=== PATIENT | female | born 1990 | race Caucasian/White ===

== ENCOUNTER 2017-08-11 23:08 | Emergency (ER) | payer SELFPAY ==
[~2017-08-11] VITALS: Ht 152.4 cm; Wt 79.4 kg
[~2017-08-11 23:08] MED LIST: ADVIL PO; TYLENOL PO
[2017-08-12] MEDS ORDERED: ACETAMINOPHEN/CODEINE 120-12 MG PER 5 ML LIQUID UDC PO ONE (00:45)
[2017-08-12] MEDS ORDERED: predniSONE 20 MG TABLET PO ONE (00:45)
--- NOTE | 2017-08-12 01:02 | NUR ---
Patient discharged to home in stable conditon. Written and verbal after care instructions given. Patient verbalizes understanding of instructions.
[2017-08-12] MEDS ORDERED: ACETAMINOPHEN/CODEINE 120-12 MG PER 5 ML LIQUID UDC ONE (01:03)
[2017-08-12] MEDS ORDERED: predniSONE 10 MG TABLET ONE (01:03)
[2017-08-12] MEDS ORDERED: predniSONE 50 MG TABLET ONE (01:04)
== END 2017-08-12 01:03 | disposition home or self-care (01) ==
LOC: ER 23:17
DX: J45.909 Unspecified asthma, uncomplicated (principal); Z90.49 Acquired absence of other specified parts of digestive tract
CPT/HCPCS: A4663; J7512

== ENCOUNTER 2023-09-27 20:08 | Emergency (ER) | payer OTHER ==
[~2023-09-27] VITALS: Ht 152.4 cm; Wt 65.8 kg
[2023-09-27 23:18] VITALS: BP 123/71; O2SAT 99
== END 2023-09-27 23:19 | disposition home or self-care (01) ==
LOC: ER 20:34
DX: S93.511A Sprain of interphalangeal joint of right great toe, initial encounter (principal); Z90.49 Acquired absence of other specified parts of digestive tract; Z79.899 Other long term (current) drug therapy; W22.8XXA Striking against or struck by other objects, initial encounter; Y93.89 Activity, other specified; Y92.89 Other specified places as the place of occurrence of the external cause; Y99.8 Other external cause status
CPT/HCPCS: 73660; A4606; A4663

== ENCOUNTER → 2023-09-27 | Emergency (ER) | payer OTHER | END | disposition left against medical advice (07) | LOC: ER 20:20 | DX: Z53.21 Procedure and treatment not carried out due to patient leaving prior to being seen by health care provider (principal) ==